=== PATIENT | female | born 1990 | race African-American/Black ===

== ENCOUNTER 2018-10-18 20:58 | Emergency (ER) | payer MEDICAID, OTHER ==
[~2018-10-18] VITALS: Ht 170.2 cm; Wt 64.0 kg
[2018-10-19 05:39] VITALS: BP 115/84
== END 2018-10-19 05:45 | disposition home or self-care (01) ==
LOC: ER 20:58 → EDUNIT# 20:58 → ER 10-19 05:45
DX: J06.9 Acute upper respiratory infection, unspecified (principal); F17.200 Nicotine dependence, unspecified, uncomplicated; Z91.018 Allergy to other foods
CPT/HCPCS: 99283